=== PATIENT | female | born 1965 | race Caucasian/White ===

== ENCOUNTER 2017-06-20 12:55 | Outpatient (CLI) | payer MEDICARE, MEDICAID | END 2017-06-20 23:59 | disposition home or self-care (01) | LOC: US 12:55 | DX: K80.20 Calculus of gallbladder without cholecystitis without obstruction (principal); R05 Cough; K76.0 Fatty (change of) liver, not elsewhere classified; R16.0 Hepatomegaly, not elsewhere classified | CPT/HCPCS: 71046; 76705-TC ==